=== PATIENT | male | born 1935 | race Two or more races ===

== ENCOUNTER 2018-10-22 11:44 | Emergency (ER) | payer MEDICARE, MEDICAID ==
[~2018-10-22] VITALS: Ht 152.4 cm; Wt 74.8 kg
[2018-10-22 13:11] VITALS: BP 144/91
== END 2018-10-22 14:03 | disposition home or self-care (01) ==
LOC: ER 11:44 → EDBD 11:44 → ER 14:03
DX: S01.21XA Laceration without foreign body of nose, initial encounter (principal); S51.811A Laceration without foreign body of right forearm, initial encounter; Z95.0 Presence of cardiac pacemaker; V49.9XXA Car occupant (driver) (passenger) injured in unspecified traffic accident, initial encounter; Y93.89 Activity, other specified; Y99.8 Other external cause status; Y92.89 Other specified places as the place of occurrence of the external cause